=== PATIENT | male | born 1980 | race Two or more races ===

== ENCOUNTER 2018-01-22 17:38 | Emergency (ER) | payer SELFPAY ==
[~2018-01-22] VITALS: Ht 190.5 cm; Wt 108.9 kg
[2018-01-22 17:48] VITALS: BP 147/80; Ht 190.5 cm; Wt 108.9 kg
== END 2018-01-22 19:24 | disposition left against medical advice (07) ==
LOC: ED 17:38
DX: Z53.21 Procedure and treatment not carried out due to patient leaving prior to being seen by health care provider (principal)

== ENCOUNTER 2020-05-12 14:27 | Emergency (ER) | payer OTHER ==
[~2020-05-12] VITALS: Ht 190.5 cm; Wt 120.2 kg
[2020-05-12 14:38] VITALS: Ht 190.5 cm; Wt 120.2 kg
[2020-05-12] MEDS ORDERED: ACETAMINOPHEN-H1 TA1 PO (15:43)
[2020-05-12] MEDS ORDERED: SOMA350 MG PO (15:43)
[2020-05-12 15:58] VITALS: BP 117/79
== END 2020-05-12 15:58 | disposition home or self-care (01) ==
LOC: ED 14:27
DX: S42.302A Unspecified fracture of shaft of humerus, left arm, initial encounter for closed fracture (principal); X58.XXXA Exposure to other specified factors, initial encounter; Y93.89 Activity, other specified; Y92.89 Other specified places as the place of occurrence of the external cause; Y99.8 Other external cause status